=== PATIENT | male | born 1965 | race Caucasian/White ===

== ENCOUNTER → 2016-12-08 | Day surgery (SDC) | payer OTHER ==
[~2016-12-08] VITALS: Ht 175.3 cm; Wt 129.0 kg
[~2016-12-08] MED LIST: ACETAMINOPHEN 325 MG TAB PO PRN; ALBU0.633 NEB; ASPCH81X PO; ATROPINE SULFATE 0.1 MG/ML 5ML SYR IV PRN; BUPR100T5 PO; CYCL10TA6 PO; DILT120C99 PO; FENTANYL CITRATE INJ 50 MCG/1 ML 2 ML VIAL ONE; FLUT1INH7 INH; HYDR25TA4 PO; ISOS60TA2 PO; LISI40TA PO; LPT/40 PO; MIDAZOLAM HCL 1 MG/ML 2ML VIAL ONE; MIRT45TA3 PO; NAPR500T3 PO; ONDANSETRON INJ 2 MG/ML 2 ML VIAL IV PRN; OXGN; PRLSR20 PO; SODIUM CHLORIDE 0.9% 1000ML 250 ML IV PRN; TRAZ100T29 PO; UMEC1INH INH; VNTHFA/IN INH; ZALE10CA PO; ZOLP10TA6 PO
[2016-12-08 08:44] VITALS: BP 143/93; PULSE 86; TEMP 36.9; O2SAT 97; Ht 175.3 cm; Wt 129.0 kg
--- NOTE | 2016-12-08 09:36 | History & Physical Bridge Note ---
H&P Re-Evaluation Bridge Note: I have examined the patient, reviewed the History & Physical and in the interval since the performance of the History & Physical I have noted the following changes of clinical significance: No changes noted
--- NOTE | 2016-12-08 09:37 | Procedure Note ---
Pre-Mod Sedation Assessment General Date of Moderate Sedation: Dec 08, 2016. Vital Signs: Vital Signs Past 12 Hours Date Time Temp Pulse Resp B/P (MAP) Pulse Ox O2 Delivery O2 Flow Rate FiO2 12/08/16 08:44 36.9 86 18 143/93 97 Nasal Cannula 2 Review Cardiovascular: regular rate, rhythm, no edema, no gallop Abdomen: normal bowel sounds, non tender, soft Lungs: chest non-tender, lungs clear, normal breath sounds Pre-Sedation Airway Assessment Oral Cavity: WNL Short Thick Neck: Yes Hx of Sleep Apnea: Yes Smoking Status: Current Every Day Smoker Mallampati Classification: Class III ASA Classification: Class III Procedure Planning Contraindications-for Mod Sed: None Yes Notes The planned sedation has been discussed with the patient and consent obtained. I have identified the patient, determined the appropriateness of sedation and have assessed the patient immediately prior to the procedure. All medicine(s) and interventions are by my order.
--- NOTE | 2016-12-08 10:57 | Procedure Note ---
Post-Mod Sedation Assessment General Date of Moderate Sedation Dec 08, 2016. Vital Signs: Vital Signs Past 12 Hours Date Time Temp Pulse Resp B/P (MAP) Pulse Ox O2 Delivery O2 Flow Rate FiO2 12/08/16 10:45 80 18 131/81 (98) 95 Nasal Cannula 2 12/08/16 10:38 78 18 137/78 (97) 95 Room Air 12/08/16 08:44 36.9 86 18 143/93 97 Nasal Cannula 2 Review - Discharge Criteria Vital Signs Stable: Yes Alert/Oriented/Conversant: Yes Returned to Baseline Mental St: Yes Nausea Absent/Minimal: Yes Pain/Discomfort/Absent/Minimal: Yes Normal/Baseline Respirations: Yes Active Bleeding?: No Pt Received D/C Instructions: Yes Prescriptions Given: None Specific Proced. D/C Criteria Distal Pulses Present (Cardiac: Yes Groin site assessed-Card Cath: Yes Voided Prior To Discharge: Yes Discharged Patients Adult Escort/Transportation: Yes
--- NOTE | 2016-12-08 11:03 | Cardiac Catheterization ---
Procedure Note Procedure Date Dec 08, 2016. 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 Hemodynamics Rest Ao: 101/72/86 Final Ao: 114/77/93 LV: 117/-2/13 Recommendations PCI without planned CABG (Patient [facility] be [facility] to [facility] PCI of LAD) Specimens None Radiation Exposure (mGy) 1568 Contrast (mls) 55 Anesthesia Moderate Sedation. Start 0957. End 1038. Sedation monitor Josefa Jerez RN Procedural Complication(s) None Disposition Tutoring Clinician Holding/Recovery ACC Data Cardiac Status Clinical evaluation leading to the procedure CAD Presntation: Stable angina, Positive Stress Test Anginal Classification: CCS III Cardiogenic Shock w/in 24Hrs: No Cardiac Arrest w/in 24Hrs: No Imaging studies past 6 months: Yes Stress studies past 6 months: Yes Stress Echocardiogram: Yes - Positive, Risk/Extent of Ischemia (High) Coronary Anatomy Dominant: Right Left Main (% Stenosis): Normal LAD (% Stenosis): Mid (30% at origin of D1 (area of tortuosity) followed by 100 % occlusion at ostium of D2), Distal (fills via right to left and left to left collaterals.) D1 (% Stenosis): Normal D2 (% Stenosis): Ostial (60% at level of LAD occlusion) Circumflex (% Stenosis): Proximal (10%), Mid (20%), Distal (20%) OM1 (% Stenosis): Normal RCA (% Stenosis): Normal R PDA (% Stenosis): Normal R PL1 (% Stenosis): Normal R PL2 (% Stenosis): Normal Ramus (% Stenosis): Distal (10%) Diagnostic Status: Elective Closure Device Percutaneous Entry Location: Femoral Closure Device: Mynx Intraprocedure Events Significant Dissection: No Perforation: No
--- NOTE | 2016-12-08 13:56 | Discharge Instructions ---
Discharge Instructions Procedure Procedure Date: Dec 08, 2016. Reason for Visit: Left,Angina,Abnormal Stress Test*Dr Michael To Do. Discharge Discharge Date: Dec 08, 2016. Discharge Diagnosis: Status post cardiac catheterization demonstrating chronic total occlusion of the mid left anterior descending artery. Last Recorded Wt (Kilograms): 129 Anesthesia Post Anesthesia Instructions: If you have had General Anesthesia or IV Sedation: * Do not drive today. * Resume driving when surgeon permits. * Do not make important decisions or sign legal documents today. * Call surgeon for: 1. Temperature elevations greater than 101 degrees F. 2. Uncontrollable pain. 3. Excessive bleeding. 4. Persistent nausea and vomiting. 5. Medication intolerance (nausea, vomiting or rash). * For nausea and vomiting use only clear liquids such as: tea, soda, bouillon until nausea subsides, then gradually increase diet as tolerated. * If you have any concerns or questions, call your surgeon's office. If physician is unavailable and it is an emergency, call 911 or go to the nearest emergency room. Instructions Activity Recommendations: limitations as noted below Return to School/Work: with the following limitations Recommended Home Diet: low sodium, low cholesterol Allergies: Coded Allergies: No Known Allergies (Unverified , 12/08/16) Provider Instructions ACTIVITY RECOMMENDATIONS: It is common to feel weak and fatigue for a few days. * Do not drive or operate any motorized equipment for the next three days. * Limit stair usage (2 or 3 trips a day only) for the next three days. * Do not lift anything heavier than 10 pounds for the next three days. * Do not engage in vigorous exercise or any sports for the next five days. * You may shower the day after your procedure, but do not immerse the area for three days. Cleanse the site gently with soap and water. SPECIAL CARE INSTRUCTIONS: * You may replace the pressure dressing or band-aid the morning after the procedure. * After your procedure, it is normal to have a small bruise or small lump at the site. Examine your site daily for any change in the bruise or lump, redness, swelling, drainage or numbness. Notify your doctor if any change. BLEEDING: * If there is a small amount of bleeding at the site, lie down and apply firm pressure with a clean cloth for ten minutes. When the bleeding stops, lie quietly keeping the procedure limb straight for six hours. Notify your doctor as soon as possible. * If the bleeding does not stop after ten minutes or if there is a large amount of bleeding or spurting, call 911 immediately. Continue to lie down and hold firm pressure until help arrives. SKIN IRRITATION: * You may experience some redness and/or swelling in the area where radiation was administered. If any skin irritation occurs, please contact your family physician. FOLLOW UP VISIT: Keep any scheduled doctor appointments. Follow Up Follow-up with: Dr. Amanda Escamilla [facility], [place] [facility]. Patient will be contacted to schedule procedure this week. Jasmin Ortega Recommendations: Call your doctor if: * Temperature above 101 degrees * Pain not relieved by pain medicine ordered * There is increased drainage or redness from any incision * You have any unanswered questions or concerns. Your Doctors Instructions noted above were prepared by provider Raymond Michael. Patient Signature Section: Patient Instructions Signature Page Colby Skinner Patient (or Guardian) Signature/Date: I have read and understand the instructions given to me by my caregivers. Caregiver/RN/Doctor Signature/Date: The above-named patient and/or guardian has received patient instructions on this date. + Original Patient Signature Page (only) stays with chart. Please make copy for patient.
[2016-12-08 14:13] VITALS: BP 151/114; PULSE 96
== END | disposition home or self-care (01) ==
LOC: C.CATH 07:48
PROVIDERS: ATTEND Internal Medicine Cardiovascular Disease
DX: I20.9 Angina pectoris, unspecified (principal); I25.10 Atherosclerotic heart disease of native coronary artery without angina pectoris; R06.00 Dyspnea, unspecified; F17.210 Nicotine dependence, cigarettes, uncomplicated; G47.33 Obstructive sleep apnea (adult) (pediatric); E66.01 Morbid (severe) obesity due to excess calories; I10 Essential (primary) hypertension; J44.9 Chronic obstructive pulmonary disease, unspecified; F33.1 Major depressive disorder, recurrent, moderate; E78.5 Hyperlipidemia, unspecified; Z90.89 Acquired absence of other organs; Z82.5 Family history of asthma and other chronic lower respiratory diseases; Z82.49 Family history of ischemic heart disease and other diseases of the circulatory system